=== PATIENT | female | born 1970 | race Caucasian/White ===

== ENCOUNTER 2020-06-20 15:47 | Outpatient (CLI) | payer BC, SELFPAY ==
--- NOTE | ~2020-06-20 | MM_ITS ---
EXAMINATION: MM screening [facility] BI w braydon HISTORY: Screening mammogram TECHNIQUE: Craniocaudal and mediolateral oblique 3-D tomosynthesis images were obtained and synthetic 2-D images were generated. CAD analysis was submitted and interpreted. COMPARISON: 06/10/2019, 06/10/2018, 01/09/2017 BREAST PARENCHYMAL COMPOSITION: The breasts are heterogeneously dense, which may obscure small masses . FINDINGS: RIGHT BREAST: There is a possible mass in the middle third of the lower-outer right breast. LEFT BREAST: There is no evidence of suspicious mass, calcification, or architectural distortion to s uggest malignancy. There has been no significant interval change. IMPRESSION: 1. Possible right breast mass. 2. Additional mammographic views and possible breast ultrasound are recommended. BI-RADS Category 0: Incomplete: Needs additional imaging evaluation. Reviewed, dictated and finalized at location A. HIC DESIGN MANAGER IMPRESSION: 1. Possible right breast mass. 2. Additional mammographic views and possible breast ultrasound are recommended . BI-RADS Category 0: Incomplete: Needs additional imaging evaluation.
== END 2020-06-20 15:48 | disposition home or self-care (01) ==
PROVIDERS: Visit Provider Obstetrics & Gynecology
DX: Z12.31 Encounter for screening mammogram for malignant neoplasm of breast (principal); R92.8 Other abnormal and inconclusive findings on diagnostic imaging of breast
CPT/HCPCS: 77063; 77067

== ENCOUNTER 2020-07-24 10:57 | Outpatient (CLI) | payer BC, SELFPAY ==
--- NOTE | ~2020-07-24 | MMUS_ITS ---
EXAMINATION: MM diagnostic mammo unilat RT, US breast RT limited HISTORY: Possible right breast mass reported on screening mammogram of 12 12/20/2019 TECHNIQUE: Additional 3-D tomosynthesis images of the right breast were performed and synthetic 2-D i mages were generated. Rolled medial and rolled lateral craniocaudal views. CAD analysis was submitted and interpreted. High resolution upper outer quadrant right breast ultrasound was performed. COMPARISON: 06/20/2020 bilateral digital screening mammogram FINDINGS: MAMMOGRAPHIC FINDINGS: No reproducible suspicious mass or architectural distortion is detected. The area questioned on the CC projection on 06/20/2020 in the posterior outer lower right breast is n ot confirmed on rolled medial and rolled lateral craniocaudal views or compression CC Tomosynthesis v iew. There is heterogeneous dense stroma in the upper outer quadrant which might obscure a small mass. ULTRASOUND: Ultrasound imaging of the upper outer quadrant of the right breast reveals no suspicious mass or shad owing or cyst or other significant finding. IMPRESSION: 1. No mammographic evidence of malignancy 2. Routine annual mammographic screening is recommended. BI-RADS Category 1: Negative Reviewed, dictated and finalized at location A. NG II INSTRUCTOR IMPRESSION: 1. No mammographic evidence of malignancy 2. Routine annual mammographic screening is recommended. BI-RADS Category 1: Negative
== END 2020-07-24 10:58 | disposition home or self-care (01) ==
LOC: ANHIMG 11:05
PROVIDERS: Visit Provider Obstetrics & Gynecology
DX: R92.8 Other abnormal and inconclusive findings on diagnostic imaging of breast (principal)
CPT/HCPCS: 76642; 77065

== ENCOUNTER 2021-11-20 07:34 | Outpatient (CLI) | payer BC, SELFPAY ==
--- NOTE | ~2021-11-20 | MM_ITS ---
EXAMINATION: MM screening [facility] BI w bryadon HISTORY: Screening mammogram TECHNIQUE: Craniocaudal and mediolateral oblique 3-D tomosynthesis images were obtained and synthetic 2-D images were generated. CAD analysis was submitted and interpreted. COMPARISON: 07/24/2020, 06/20/2020, 06/10/2019 BREAST PARENCHYMAL COMPOSITION: There are scattered areas of fibroglandular density. FINDINGS: There is no suspicious mass, calcification, or architectural distortion to suggest malignan cy in either breast. There has been no suspicious interval change. IMPRESSION: 1. No mammographic evidence of malignancy. 2. Recommend routine screening mammography in one year. BI-RADS Category 1: Negative Reviewed, dictated and finalized at location A.
== END 2021-11-20 07:35 | disposition home or self-care (01) ==
PROVIDERS: Visit Provider Obstetrics & Gynecology
DX: Z12.31 Encounter for screening mammogram for malignant neoplasm of breast (principal)
CPT/HCPCS: 77063; 77067

== ENCOUNTER 2022-11-07 16:51 | Outpatient (CLI) | payer OTHER, SELFPAY ==
--- NOTE | ~2022-11-07 | MM_ITS ---
EXAMINATION: MM screening [facility] BI w braydon HISTORY: Screening mammogram TECHNIQUE: Craniocaudal and mediolateral oblique 3-D tomosynthesis images were obtained and synthetic 2-D images were generated. CAD analysis was submitted and interpreted. COMPARISON: 11/20/2021, 07/24/2020, 06/20/2020, 06/10/2019 BREAST PARENCHYMAL COMPOSITION: There are scattered areas of fibroglandular density. FINDINGS: No suspicious mass, calcification, or architectural distortion are identified in either jolie ast to suggest malignancy. There has been no suspicious interval change. IMPRESSION: 1. No mammographic evidence of malignancy. 2. Recommend routine screening mammography in one year. BI-RADS Category 1: Negative Reviewed, dictated and finalized at location A.
== END 2022-11-07 16:52 | disposition home or self-care (01) ==
LOC: ANHIMG 17:09
PROVIDERS: Visit Provider Obstetrics & Gynecology
DX: Z12.31 Encounter for screening mammogram for malignant neoplasm of breast (principal)
CPT/HCPCS: 77063; 77067

== ENCOUNTER 2024-01-07 14:49 | Outpatient (CLI) | payer OTHER, SELFPAY ==
--- NOTE | ~2024-01-07 | MM_ITS ---
EXAMINATION: MM screening [facility] BI w braydon HISTORY: Screening mammogram TECHNIQUE: Craniocaudal and mediolateral oblique 3-D tomosynthesis images were obtained and synthetic 2-D images were generated. CAD analysis was submitted and interpreted. COMPARISON: 11/08/2019, 11/20/2021, 07/24/2020 BREAST PARENCHYMAL COMPOSITION:Not Dense. There are scattered areas of fibroglandular density. FINDINGS: There are developing nodular asymmetries at the inner left breast. No suspicious interval c hange of the right breast. IMPRESSION: Developing nodular asymmetries at the inner left breast. Spot compression views, and possibly ultras ound, recommended for further evaluation. BI-RADS Category 0: Incomplete: Needs additional imaging evaluation. Reviewed, dictated and finalized at location . IMPRESSION: Developing nodular asymmetries at the inner left breast. Spot compression view s, and possibly ultrasound, recommended for further evaluation. BI-RADS Category 0: Incomplete: Needs additional imaging evaluation.
== END 2024-01-07 14:50 | disposition home or self-care (01) ==
LOC: ANHIMG 14:51
PROVIDERS: Visit Provider Obstetrics & Gynecology
DX: Z12.31 Encounter for screening mammogram for malignant neoplasm of breast (principal); R92.8 Other abnormal and inconclusive findings on diagnostic imaging of breast
CPT/HCPCS: 77063; 77067

== ENCOUNTER 2024-01-20 10:37 | Outpatient (CLI) | payer OTHER, SELFPAY ==
--- NOTE | ~2024-01-20 | MMUS_ITS ---
EXAMINATION: MM diagnostic [facility] LT w braydon, US breast LT limited HISTORY: Follow-up left breast mass TECHNIQUE: Additional 3-D tomosynthesis images of the left breast were performed and synthetic 2-D im ages were generated. CAD analysis was submitted and interpreted. High resolution Limited left breast ultrasound was performed. COMPARISON: Comparison to multiple prior studies sequentially, with oldest reviewed study dated 11/2018. BREAST PARENCHYMAL COMPOSITION: Not dense: There are scattered areas of fibroglandular density. FINDINGS: MAMMOGRAPHIC FINDINGS: There is a small mass in the medial aspect of the left breast at approximately 9:00 position, middle third. This mass is partially obscured by fibroglandular tissue. There are no suspicious calcificatio ns or architectural distortion. ULTRASOUND: Limited left breast ultrasound: At 9:00, 7 cm from the nipple there is a septated 4 mm cyst correspon ding to the mammographic finding. No suspicious masses to suggest malignancy. IMPRESSION: 1. No evidence for malignancy in the left breast. Benign findings. 2. Routine yearly screening mammogram and regular clinical breast examination are recommended. BI-RADS CATEGORY 2 - BENIGN FINDINGS Reviewed, dictated and finalized at location B. IMPRESSION: 1. No evidence for malignancy in the left breast. Benign findings. 2. Routine yearly screening mammogram and regular clinical breast examination a re recommended. BI-RADS CATEGORY 2 - BENIGN FINDINGS
== END 2024-01-20 10:38 | disposition home or self-care (01) ==
LOC: ANHIMG 10:38
PROVIDERS: Visit Provider Obstetrics & Gynecology
DX: R92.8 Other abnormal and inconclusive findings on diagnostic imaging of breast (principal)
CPT/HCPCS: 76642; 77061; 77065; G0279

== ENCOUNTER 2025-05-10 16:05 | Outpatient (CLI) | payer OTHER, SELFPAY ==
--- NOTE | ~2025-05-10 | MM_ITS ---
EXAMINATION: MM screening kevyn BI w braydon HISTORY: Screening TECHNIQUE: Craniocaudal and mediolateral oblique 3-D tomosynthesis images were obtained and synthetic 2-D images were generated. CAD analysis was submitted and interpreted. COMPARISON: Comparison to multiple prior studies sequentially, with oldest reviewed study dated , 06/20/2020 BREAST PARENCHYMAL COMPOSITION: There are scattered areas of fibroglandular density. FINDINGS: There is no evidence of suspicious mass, calcification, or architectural distortion to suggest malignancy in either breast. IMPRESSION: 1. No mammographic evidence of malignancy. 2. Recommend routine screening mammography in one year. BI-RADS Category 1: Negative Reviewed, dictated and finalized at location B. [facility]
--- OUTSIDE RECORDS SUMMARY | 2025-05-10 07:00 | XMS_ITS | Encounter Summary ---
Author Organization [facility] Healthcare Address [address] [place] [address] Care Team Providers Care Fan Blade Aligner Name Role Phone Starr Jennings Unavailable [phone] oCle Rush MD Unavailable [phone] Maxwell Nuñez MD Unavailable [phone] Cheri Ann NP Unavailable [phone] Justina Camp Primary Care Provider + Reason for Visit * Reason Comments Annual Exam Pt is here for yearl y wellness visit Encounter Details Date Type Department Care Team (Latest Contact Info) Description 05/10/2025 7:00 AM SUSTAINABILITY OFFICER Office Visit [facility] Family Medicine [address] [id number] Bee Sims NP [address] [facility] [address] [place] [address] Physical exam, annual (Primary Dx); Moderate major depression (HCC); Attention deficit hyperactivity disorder (ADHD), predominantly inattentive type; DUNIA (generalized anxiety disorder); Hepatic steatosis; FÉLIX (obstructive sleep apnea); Hypertension, essential; Vitamin D deficiency(12); Class 1 obesity due to excess calories without serious comorbidity with body mass index (BMI) of 33.0 to 33.9 in adult; History of melanoma excision; Need for vaccination Social History Tobacco Use Types Packs/Day Years Used Date Smoking Tobacco: Never Smokeless Tobacco: Never Alcohol Use Standard Drinks/Week Comments Yes 6 (1 standard drink = 0.6 oz pur e alcohol) socially PHQ-2 Answer Date Recorded PHQ-2 Total Score (If total score is 3 or more points, staff should administer the PHQ-9) 2 05/10/2025 PHQ-9 Answer Date Recorded PHQ-9 Total Score 11 05/10/2025 AUDIT-C Answer Date Recorded Q1: How often do you have a drink containing alc ohol? 2-3 times a week 05/10/2025 Q2: How many drinks containi ng alcohol do you have on a typical day when you are drinking? 3 or 4 05/10/2025 Q3: How often do you have si x or more drinks on one occasion? Less than monthly 05/10/2025 Comments No Sex and Gender Information Value Date Recorded Sex Assigned at Not on file Legal Sex Female 2:29 AM SUSTAINABILITY OFFICER Gender Identity Female 06/17/2020 11:07 AM SUSTAINABILITY OFFICER Sexual Orientation Straight 06/17/2020 11 :07 AM SUSTAINABILITY OFFICER documented as of this encounter Last Filed Vital Signs Vital Sign Reading Time Taken Comments Blood Pressure 138/82 05/10/2025 6:56 AM SUSTAINABILITY OFFICER Pulse 94 05/10/2025 6:56 AM SUSTAINABILITY OFFICER Temperature 36.2 C (97.2 F) 05/10/2025 6:56 AM SUSTAINABILITY OFFICER Respiratory Rate 16 05/10/2025 6:56 AM SUSTAINABILITY OFFICER Oxygen Saturation 97% 05/10/2025 6:56 AM SUSTAINABILITY OFFICER Inhaled Oxygen Concentration - - Weight 90.2 kg (198 lb 12.8 oz) 05/10/2025 6:56 AM SUSTAINABILITY OFFICER Height 165.1 cm (5' 5) 05/10/2025 6:56 AM SUSTAINABILITY OFFICER Body Mass Index 33.08 05/10/2025 6:56 AM SUSTAINABILITY OFFICER documented in this encounter Functional Status * AUDIT-C Score Answer Date of Assessment Author 5 05/10/2025 7:02 AM SUSTAINABILITY OFFICER Gabriella Gallego MA * Question Answer Date of Assessment Author Q1: How often do you have a drink containing alcohol? 2-3 times a week 05/10/2025 7:02 AM Renita Motta MA Q2: How many drinks containing alcohol do you have on a typical day when you are drinking? 3 or 4 05/10/2025 7:02 AM Renita Motta MA Q3: How often do you have six or more drinks on one occasion? Less than monthly 05/10/2025 7:02 AM Renita Motta MA documented as of this encounter Progress Notes * Bee Sims MAGNESIUM MILL OPERATOR - 05/10/2025 7:00 AM CST Images from the original note were not included. Subjective/Objective Visit Date: 05/10/2025 Patient ID: Christy Morales is a 55 y.o. female. This patient has verbally consented to recording this visit in order to utilize AI technology in generating this note. Chief Complaint Chief Complaint Patient presents with Annual Exam Pt is here for yearly wellness visit History of Present Illness Christy Morales is a 55 year old female who presents for an annual physical exam. Depression with anxiety - DUNIA of 18 today. She manages her anxiety better than before, although it remains high. It does not significantly affect her sleep or daily life. Sleep disturbances are attributed to menopausal symptoms, such as hot flashes, which cause her to wake up at the same time everynight, but she is able to fall back asleep easily. Depression is stable with PHQ of 11. She experiences seasonal depression, particularly during the holidays, and finds exercise helps. Hx of melanoma-She was treated for melanoma in 2018, which was removed from her arm. She sees a artificial pearl maker annually for follow-up. ADHD-She is taking Adderall for ADHD, which helps with focus and does not cause chest fluttering oraffect her sleep. Vit D deficiency- vitamin D supplement, 50,000 IU weekly, but notes that it causes constipation. Obesity -She has been actively trying to lose weight for the past two years, incorporating walking and a 20-minute routine when unable to walk outside. She has lost 14 pounds over the past year. FÉLIX-She has sleep apnea but does not use a CPAP machine, as it made her feel more agitated. Her [id number] has suggested a dental device, but she has not pursued it. Hepatic steatosis - asx w/ normal liver enzymes- working on diet HTN - bp in 130s in office today - denies CP or SOB- no medication at this time - believes it may be higher today due to her boss being in today She has been diagnosed with celiac disease but does not restrict her diet as she does not experience symptoms. Vitals: 05/10/25 0656 BP: 138/82 BP Location: Right arm Patient Position: Sitting Pulse: 94 Resp: 16 Temp: 36.2 ??C (97.2 ??F) TempSrc: Temporal SpO2: 97% Weight: 90.2 kg (198 lb 12.8 oz) Height: 165.1 cm (5' 5) Physical Exam Constitutional: Appearance: Normal appearance. HENT: Right Ear: Tympanic membrane, ear canal and external ear normal. Left Ear: Tympanic membrane, ear canal and external ear normal. Nose: Nose normal. Mouth/Throat: Mouth: Mucous membranes are moist. Eyes: Conjunctiva/sclera: Conjunctivae normal. Cardiovascular: Rate and Rhythm: Normal rate and regular rhythm. Pulses: Normal pulses. Heart sounds: Normal heart sounds. Pulmonary: Effort: Pulmonary effort is normal. Breath sounds: Normal breath sounds. Abdominal: General: Bowel sounds are normal. Palpations: Abdomen is soft. Musculoskeletal: General: Normal range of motion. Cervical back: Normal range of motion. Skin: General: Skin is warm and dry. Neurological: General: No focal deficit present. Mental Status: She is alert and oriented to person, place, and time. Mental status is at baseline. Psychiatric: Mood and Affect: Mood normal. Results LABS Vitamin D: decreased (10/2024) Liver enzymes: within normal limits (10/2024) Assessment & Plan Physical exam, annual General health maintenance discussed Annual eye exam recommended Regular dental exams recommended every 6 months Labs up to date Influenza and PNA given today Will get shingles vaccine at later date Moderate major depression (HCC) Chronic, stable Exercise encouraged to release natural endorphins Attention deficit hyperactivity disorder (ADHD), predominantly inattentive type Chronic, stable ADHD managed with Adderall. No side effects reported. Medication effective for focus. - Update and sign controlled substance agreement form. DUNIA (generalized anxiety disorder) Chronic, stable Exercise encouraged to release natural endorphins Hepatic steatosis Chronic, stable Fatty liver with normal liver enzymes. Weight loss efforts ongoing. - Continue weight loss efforts to improve liver health. FÉLIX (obstructive sleep apnea) Chronic, stable -Reports sleeping well - Discuss benefits of weight loss on sleep apnea and overall health. Diagnosed with sleep apnea. Not using CPAP. Discussed alternative oral devices. Weight loss may improve symptoms. - Consider alternative oral devices for sleep apnea. - Encourage weight loss to potentially alleviate sleep apnea symptoms. Hypertension, essential Chronic, stable Reviewed heart healthy diet Exercise recommended at least 5 times per week for a 1/2 hour Low-sodium diet recommended-2000 mg or less per day Monitor blood pressure regularly notify if less than 100/60 or greater than 130s over 80s Notify if pulse is less than 60 or greater than 100 Vitamin D deficiency(12) Chronic, stable Taking 50,000 IU weekly. Reports constipation. Discussed adjusting intake based on sun exposure andside effects. - Recheck vitamin D levels in six months. Class 1 obesity due to excess calories without serious comorbidity with body mass index (BMI) of 33.0 to 33.9 in adult Chronic, improving Obesity, class 1 BMI 33. Lost 14 pounds over the past year. Encouraged continued weight loss to reduce diabetes and cholesterol risk. Discussed benefits on sleep apnea and overall health. - Encourage continued weight loss efforts. History of melanoma excision Melanoma excised in 2018. Annual dermatology follow-ups maintained. - Continue annual dermatology follow-ups. Need for vaccination PNA and influenza vaccine given today Orders: Pneumococcal conjugate vaccine 20-valent IM (Prevnar-20) Flu Vaccine Tri 6m+ IM - Flulaval/Fluarix/Fluzone () Assessment & Plan Return for F/U in 6 months. Bee Sims NP AINABILITY OFFICER documented in this encounter Miscellaneous Notes * Assessment & Plan Note - Bee Sims NP - 05/10/2025 7:00 AM SUSTAINABILITY OFFICER Associated Problem(s): Physical exam, annual General health maintenance discussed Annual eye exam recommended Regular dental exams recommended every 6 months Labs up to date Influenza and PNA given today Will get shingles vaccine at later date AINABILITY OFFICER AINABILITY OFFICER AINABILITY OFFICER AINABILITY OFFICER * Assessment & Plan Note - Bee Sims NP - 05/10/2025 7:00 AM SUSTAINABILITY OFFICER Associated Problem(s): Attention deficit hyperactivity disorder (ADHD), predominantly inattentive type Chronic, stable ADHD managed with Adderall. No side effects reported. Medication effective for focus. - Update and sign controlled substance agreement form. AINABILITY OFFICER AINABILITY OFFICER AINABILITY OFFICER AINABILITY OFFICER * Assessment & Plan Note - Bee Sims NP - 05/10/2025 7:00 AM SUSTAINABILITY OFFICER Associated Problem(s): Hepatic steatosis Chronic, stable Fatty liver with normal liver enzymes. Weight loss efforts ongoing. - Continue weight loss efforts to improve liver health. AINABILITY OFFICER AINABILITY OFFICER AINABILITY OFFICER AINABILITY OFFICER * Assessment & Plan Note - Bee Sims NP - 05/10/2025 7:00 AM SUSTAINABILITY OFFICER Associated Problem(s): FÉLIX (obstructive sleep apnea) Chronic, stable -Reports sleeping well - Discuss benefits of weight loss on sleep apnea and overall health. Diagnosed with sleep apnea. Not using CPAP. Discussed alternative oral devices. Weight loss may improve symptoms. - Consider alternative oral devices for sleep apnea. - Encourage weight loss to potentially alleviate sleep apnea symptoms. AINABILITY OFFICER AINABILITY OFFICER AINABILITY OFFICER AINABILITY OFFICER * Assessment & Plan Note - Bee Sims NP - 05/10/2025 7:00 AM SUSTAINABILITY OFFICER Associated Problem(s): Vitamin D deficiency(12) Chronic, stable Taking 50,000 IU weekly. Reports constipation. Discussed adjusting intake based on sun exposure andside effects. - Recheck vitamin D levels in six months. AINABILITY OFFICER AINABILITY OFFICER AINABILITY OFFICER AINABILITY OFFICER * Assessment & Plan Note - Bee Sims NP - 05/10/2025 7:00 AM SUSTAINABILITY OFFICER Associated Problem(s): Class 1 obesity due to excess calories without serious comorbidity with bodymass index (BMI) of 33.0 to 33.9 in adult Chronic, improving Obesity, class 1 BMI 33. Lost 14 pounds over the past year. Encouraged continued weight loss to reduce diabetes and cholesterol risk. Discussed benefits on sleep apnea and overall health. - Encourage continued weight loss efforts. AINABILITY OFFICER AINABILITY OFFICER AINABILITY OFFICER AINABILITY OFFICER * Assessment & Plan Note - Bee Sims NP - 05/10/2025 7:00 AM SUSTAINABILITY OFFICER Associated Problem(s): Moderate major depression (HCC) Chronic, stable Exercise encouraged to release natural endorphins AINABILITY OFFICER AINABILITY OFFICER * Assessment & Plan Note - Bee Sims NP - 05/10/2025 7:00 AM SUSTAINABILITY OFFICER Associated Problem(s): History of melanoma excision Melanoma excised in 2018. Annual dermatology follow-ups maintained. - Continue annual dermatology follow-ups. AINABILITY OFFICER AINABILITY OFFICER AINABILITY OFFICER * Assessment & Plan Note - Bee Sims NP - 05/10/2025 7:00 AM SUSTAINABILITY OFFICER Associated Problem(s): Hypertension, essential Chronic, stable Reviewed heart healthy diet Exercise recommended at least 5 times per week for a 1/2 hour Low-sodium diet recommended-2000 mg or less per day Monitor blood pressure regularly notify if less than 100/60 or greater than 130s over 80s Notify if pulse is less than 60 or greater than 100 AINABILITY OFFICER AINABILITY OFFICER * Assessment & Plan Note - Bee Sims NP - 05/10/2025 7:00 AM SUSTAINABILITY OFFICER Associated Problem(s): DUNIA (generalized anxiety disorder) Chronic, stable Exercise encouraged to release natural endorphins AINABILITY OFFICER AINABILITY OFFICER documented in this encounter Plan of Treatment Not on file documented as of this encounter Visit Diagnoses Diagnosis Physical exam, annual- Primary Moderate major depression (HCC) Major depressive disorder, single episode, moderate Attention deficit hyperactivity disorder (ADHD), predominantly inattentive type DUNIA (generalized anxiety disorder) Generalized anxiety disorder Hepatic steatosis Other chronic nonalcoholic liver disease FÉLIX (obstructive sleep apnea) Obstructive sleep apnea (adult) (pediatric) Hypertension, essential Unspecified essential hypertension Vitamin D deficiency(12) Class 1 obesity due to excess calories without serious comorbidity with body mass index (BMI) of 33.0 to 33.9 in adult History of melanoma excision Need for vaccination Need for prophylactic vaccination and inoculation against unspecified single disease documented in this encounter Orders Immunization/Injection Count Last Ordered Date First Ordered Date FLU VACCINE TRI (6 M OS UP) PF - FLULAVAL/FLUARIX/FLUZONE 1 05/10/2025 PNEUMOCOCCAL CONJUGATE VACCI NE 20 VALENT IM 1 05/10/2025 documented in this encounter Care Teams Fan Blade Aligner Relationship Specialty Start Date End Date Justina Camp PA [address] [facility] [address] [place] [address] PCP - General Family Medicine 02/11/24 Starr Jennings PA [address] [facility] [address] 06/27/20 Cole Rush MD [address] [address] Referring Physician Obstetrics and Gynecology 01/15/22 Maxwell Nuñez MD [address] [address] Consulting Physician Endocrinology Diabetes & Metabolism 01/15/22 Cheri Ann NP [address] [facility] [place] [address] Nurse Practitioner Gastroenterology 01/15/22 documented as of this encounter
--- OUTSIDE RECORDS SUMMARY | 2025-05-10 16:51 | XMS_ITS | Clinical Summary ---
Author Organization [facility] Address [address] [place] [address] Care Team Providers Care Senior Sql Server Developer Name Role Phone Unavailable Primary Care Provider Unavailabl e Source Comments [facility],non-owned Affiliates and Associated Physician Practices is amultiple site organization consisting of ambulatory clinics and hospital sitesin [place], [place], [place] and [place]. This disclosure is being madepursuant to the Care Everywhere program and may not contain all information available regarding this patient. Last updated 18.[facility] Allergies No known active allergies Medications * Be aware that medications may not be up to date on this document. Alwaysverify current medications with the patient. ergocalciferol (DRISDOL) 1.25 MG (56570 UT) capsule Take 50,000 Units by mouth Two times a week 12/11/2020 Active Active Problems Problem Noted Date Diagnosed Date Melanoma of right upper arm 05/11/2018 Immunizations Immunization Administration Dates Next Due INFLUENZA VACCINE 06/27/2020 Family History Medical History Relation Name Comments Other - Hepatic/Liver Father Relation Name Status Comments Father Social History Tobacco Use Types Packs/Day Years Used Date Smoking Tobacco: Never Smokeless Tobacco: Never Alcohol Use Standard Drinks/Week Comments Yes 0 (1 standard drink = 0.6 oz pur e alcohol) socially Comments No Sex and Gender Information Value Date Recorded Sex Assigned at Not on file Legal Sex Female 2:02 PM CDT Gender Identity Not on file Sexual Orientation Not on file Last Filed Vital Signs Vital Sign Reading Time Taken Comments Blood Pressure 152/90 07/04/2021 8:41 AM CANE WEIGHER Pulse 91 07/04/2021 8:41 AM CANE WEIGHER Temperature 36.3 C (97.3 F) 07/04/2021 8:41 AM CANE WEIGHER Respiratory Rate 20 06/28/2020 9:29 AM CANE WEIGHER Oxygen Saturation 99% 07/04/2021 8:41 AM CANE WEIGHER Inhaled Oxygen Concentration - - Weight 106.6 kg (235 lb) 07/04/2021 8:41 AM CANE WEIGHER Height 167.6 cm (5' 6) 07/04/2021 8:41 AM CANE WEIGHER Body Mass Index 37.93 07/04/2021 8:41 AM CANE WEIGHER Plan of Treatment Health Maintenance Due Date Last Done Comments COLOGUARD (AGES 45-75) - COL ON CA SCREENING 1969 COLON MONITORING 1969 COLONOSCOPY - COLON CA SCREENING 1969 CT COLONOGRAPHY - COLON CA SCREENING 1969 Colorectal Cancer Screening 1969 FIT - COLON CA SCREENING 1969 FLEX SIG - COLON CA SCREENING 1969 LIPID TESTING 1969 HIV SCREENING 01/11/1984 HEPATITIS C SCREENING 01/06/1987 DTAP/TDAP/TD VACCINES (1 - Tdap) 01/11/1988 HEPATITIS B VACCINE (1 of 3 - 19+ 3-dose series) 01/11/1988 PAP SMEAR 1990 PNEUMOCOCCAL VACCINE 50+ (1 of 1 - PCV) 2019 ZOSTER VACCINE (1 of 2) 2019 MAMMOGRAM 06/10/2020 06/10/2018 SCREENING FOR DIABETES 05/11/2021 05/11/2018 DEPRESSION SCREENING 07/07/2024 COVID-19 VACCINE (3 - 2024-2 6 season) 2025 09/14/2020, 08/24/2020 INFLUENZA VACCINE (#1) 2025 2, 04/17/2021, 06/27/2020 HIB VACCINE Aged Out No longer eligi ble based on patient's age to complete this topic HPV VACCINE Aged Out No longer eligi ble based on patient's age to complete this topic MENINGOCOCCAL (Group B) VACCINE SHARED DECISION-MAKING Aged Out No longer eligible based on patient's age to complete this topic MENINGOCOCCAL GROUPS A/C/Y/W VACCINE Aged Out No longer eligible b ased on patient's age to complete this topic Procedures Procedure Name Priority Date/Time Associated Diagnosis Comments COMPREHENSIVE METABOLIC PANEL Routine 05/11/2018 4:40 PM CANE WEIGHER Malignant melanoma of arm, right from Last 3 Months or Most Recently Relevant to Health Maintenance Results * (ABNORMAL) COMPREHENSIVE METABOLIC PANEL (05/11/2018 4:40 PM CANE WEIGHER) BUN 7 7 - 26 mg/dL 05/11/2018 5:15 PM [facility] Creatinine 0.6 0.6 - 1.2 mg/dL 05/11/2018 5:15 PM [facility] Sodium 140 136 - 145 mmol/L 05/11/2018 5:15 PM [facility] Potassium 4.2 3.5 - 4.5 mmol/L 05/11/2018 5:15 PM [facility] Chloride 106 98 - 107 mmol/L 05/11/2018 5:15 PM [facility] CO2 25 22 - 29 mmol/L 05/11/2018 5:15 PM [facility] Glucose 94 70 - 115 mg/dL 05/11/2018 5:15 PM [facility] Calcium 9.4 8.4 - 10.2 mg/dL 05/11/2018 5:15 PM [facility] Protein Total 7.6 6.0 - 8.3 g/dL 05/11/2018 5:15 PM [facility] Albumin 3.6 3.4 - 5.0 g/dL 05/11/2018 5:15 PM [facility] Bilirubin Total 0.7 0.2 - 1.2 mg/dL 05/11/2018 5:15 PM [facility] Alkaline Phosphatase 72 40 - 150 Units/L 05/11/2018 5:15 PM [facility] ALT 47 0 - 55 Units/L 05/11/2018 5:15 PM [facility] AST 22 5 - 34 Units/L 05/11/2018 5:15 PM [facility] Anion Gap 13 8 - 18 05/11/2018 5:15 PM [facility] BUN/Creatinine Ratio 12 7 - 23 05/11/2018 5:15 PM [facility] Osmolality Calculated 288 270 - 300 mOsm/kg 05/11/2018 5:15 PM [facility] Albumin/Globulin Ratio 0.9(L) 1.1 - 2.3 05/11/2018 5:15 PM [facility] eGFR >60 >60 mL/min/1.7 3 m2 05/11/2018 5:15 PM [facility] Blood BLOOD SPECIMEN / Unknown Lab Venipuncture / Unknown 05/11/2018 4:40 PM CANE WEIGHER 05/11/2018 4:49 PM [facility] Vu Bertrand MD LAB - CHEMISTRY ORDERABLES Final Result [address] [phone] from Last 3 Months or Most Recently Relevant to Health Maintenance Insurance [facility]
--- OUTSIDE RECORDS SUMMARY | 2025-05-10 16:51 | XMS_ITS | Encounter Summary ---
Author Organization [facility] Address [address] [place] [address] Care Team Providers Care Inspector Watch Assembly Name Role Phone Unavailable Primary Care Provider Unavailabl e Encounter Details Date Type Department Care Team (Late st Contact Info) Description 12/25/2020 Lab Requisition [facility] [address] [place] [address] Eduar Chambers MD [address] [facility] [place] [address] Social History Tobacco Use Types Packs/Day Years Used Date Smoking Tobacco: Never Smokeless Tobacco: Never Alcohol Use Standard Drinks/Week Comments Yes 0 (1 standard drink = 0.6 oz pur e alcohol) socially Comments No Sex and Gender Information Value Date Recorded Sex Assigned at Not on file Legal Sex Female 2:02 PM CDT Gender Identity Not on file Sexual Orientation Not on file documented as of this encounter Functional Status * Is person deaf or have serious hearing difficulty? Answer Date of Assessment Author No 05/15/2018 3:11 PM Wendy Centeno RN * Is person blind or have serious difficulty seeing? Answer Date of Assessment Author No 05/15/2018 3:11 PM Wendy Centeno RN * Does person have serious difficulty walking/climbing stairs? Answer Date of Assessment Author No 05/15/2018 3:11 PM Wendy Centeno RN * Does person have difficulty dressing/bathing? Answer Date of Assessment Author No 05/15/2018 3:11 PM Wendy Centeno RN * Does person have difficulty doing errands alone? Answer Date of Assessment Author No 05/15/2018 3:11 PM Wendy Centeno RN documented as of this encounter Mental Status * Does person have difficulty concentrating/remembering/making decisions? Answer Entry Date Author No 05/15/2018 3:11 PM Wendy Centeno RN documented in this encounter Plan of Treatment Not on file documented as of this encounter Procedures Procedure Name Priority Date/Time Associated Diagnosis Comments DERMATOPATHOLOGY Routine 12/21/2020 3:33 AM CDT documented in this encounter Results * DERMATOPATHOLOGY (12/21/2020 3:33 AM CDT) Case Report Dermatopathology Report Case: [id number] Authorizing Provider: Eduar Chambers MD Collected: 12/21/2020 03:33 AM Ordering Location: [facility] Received: 12/25/2020 05:23 AM Pathologist: Tracey Evans MD Specimen: Skin, right inframammary 10:16 AM CDT DERMATOPATHOLOGY LABORATORY Final Diagnosis Specimen A. SKIN, right inframammary: LENTIGINOUS MELANOCYTIC NEVUS, COMPOUND TYPE, IRRITATED (COMPOUND MELANOCYTIC NEVUS WITH ARCHITECTURAL DISORDER) (D22.5) 10:16 AM CDT DERMATOPATHOLOGY LABORATORY at 1016 CDT Clinical History Nevus vs MM. Path# [id number]. 10:16 AM CDT DERMATOPATHOLOGY LABORATORY Gross Description Specimen A: Received is one formalin filled container labeled with the patient's name and designated right inframammary. The specimen consists of a shave biopsy measuring [id number]. Jar 0. 10:16 AM CDT DERMATOPATHOLOGY LABORATORY Microscopic Description Specimen A. SKIN, right inframammary: This is a compound nevus. There is melanin pigment in the stratum corneum. There is architectural disorder characterized by a lentiginous proliferation of melanocytes between irregular nests of cells along the dermal-epidermal junction, highlighted by MART-1/Melan-A immunohistochemical staining. There is underlying fibroplasia of the papillary dermis. The intradermal component is bland appearance and matures with depth. Original and deeper sections were reviewed. (Compound Chong's Nevus or Compound Dysplastic Nevus) 1 10:16 AM CDT DERMATOPATHOLOGY LABORATORY Disclaimer An external and internal positive and negative controls are appropriate for the histochemical, immunohistochemical and immunofluorescence stain(s) in this case (if any), except where stated explicitly. The performance characteristics of the stain(s) cited in this report were developed and its performance characteristic determined by the Dermatopathology Laboratory at [facility], directed by Dr. Gallo Sweeney. These tests need not be, and therefore are not, approved by the [place] Food and Drug Administration. The tests are used for clinical purposes. Billing Codes Specimen Charges Stain Charges 57434 1 22585 1 1 10:16 AM CDT DERMATOPATHOLOGY LABORATORY Embedded Images 1 10:16 AM CDT DERMATOPATHOLOGY LABORATORY Pathology/Cytolo gy TISSUE SPECIMEN FROM SKIN / Unknown 12/21/2020 3:33 AM CDT 12/25/2020 5:23 AM CDT us Eduar Chambers MD LAB - PATHOLOGY/CYTOLOGY ORDER MARIA ANTONIA Final Result DERMATOPATHOLOGY LABORATORY [facility] - Department of Dermatology [address], [address] [phone] documented in this encounter Visit Diagnoses Not on filedocumented in this encounter
--- OUTSIDE RECORDS SUMMARY | 2025-05-10 16:51 | XMS_ITS ---
Author Organization [facility] Address [address] [place] [address] Care Team Providers Care Juvenile Justice Specialist Name Role Phone Unavailable Primary Care Provider Unavailabl e Active Problems Problem Noted Date Diagnosed Date Melanoma of right upper arm 05/11/2018 Current Treatment and Therapy Plans No current plan information found. Past Treatment and Therapy Plans No past plan information found. Treatment Summaries Melanoma of right upper arm (HCC)* [facility] [address] [place] [address] Treatment Summary for Christy Morales 1970 provided on 12/14/2018 Prepared by: Fernanda Dominguez APRN-ADMISSIONS CONSULTANT on 12/14/2018 Primary Care Provider: Jean-Claude Wolfe DO Diagnosis: Melanoma of right upper arm Date of diagnosis: [facility]; 04/21/18 Age of diagnosis: 48 year old Tumor Information Site: Right upper arm Type: Melanoma TNM Staging: [id number] Group Stage: IB Surgery Information Description: Intraoperative lymphatic mapping with Lymphazurin blue dye, sentinel lymph node dissection of right axilla, wide excision of right arm melanoma 5 cm x 13 cm and complex plastic advancement layered closure of wide excision defect Date: 05/15/18 Surgeon/Facility Name: [facility] / Vu Bertrand MD Adjuvant Treatment Recommendations: surveillance Initial Imaging [facility] Xr Chest 2vw Result Date: 05/12/2018 IMPRESSION: Indeterminate 9 mm right upper lung pulmonary nodule may represent a discrete nodule orprominent vasculature. A chest CT without contrast is recommended for further evaluation in the setting of known melanoma Radiation Information NA Chemotherapy Information NA Other Information Clinical Trials: NA Pre-treatment Weight: 104.781 kg Post-Treatment Weight: 104.327 kg Psychosocial needs: None identified Fertility: NA Possible Late Effects of Your Cancer Treatment ??? Pain and scarring at surgical site Cancer Surveillance Schedule You will be seen more frequently the earlier you are in your surveillance plan. Every patient will have an individualized follow up schedule based on recommendations from national cancer organizations and your specific post- treatment course. 3-6 months for first 2 yrs, then every 6 months to annually for 5 years per recommendation of Dr Bertrand Surgery [facility] Imaging [facility] Per recommendation of Dr Bertrand Reasons to call: ??? New lesions or mass ??? Chest pain ??? New feelings of sadness or being overwhelmed ??? Unintended weight loss ??? Cough that does not go away ??? Any side effects or questions of care Your follow up schedule is listed below Future Appointments Date Time Provider Department Center 12/14/2018 1:00 PM Fernanda Dominguez, COMB MACHINE OPERATOR-ADMISSIONS CONSULTANT [facility] 12/14/2018 1:15 PM [facility] Contact Information Surgeon Vu Bertrand MD Social Work Dietitian Pastoral Care [facility] Scheduling Primary Care Provider Jean-Claude Wolfe DO, Recommended cancer screenings Colonoscopy: every 10 years beginning at age 50 unless directed otherwise. Last colonoscopy: Discuss with your primary care provider Mammogram: Annually beginning at age 40 unless directed otherwise. Last mammogram: Discuss with your primary care provider PAP smear: Ages 21-29--every 3 years Ages 30-65--every five years Age 66 (+)--if there is no history of abnormal PAP smears, none needed after age 65 General Wellness Screening Blood Pressure: annually Weight: annually Lipids: Men age >= 35+ should be screened for lipid(cholesterol) disorder. Women age >= 45 should be screened for lipid(cholesterol) disorder Diabetes: Discuss with your primary care provider especially if you are overweight or have high blood pressure Bone Density: Women age >= 65 should be screened for osteoporosis Vision: No routine screening recommended. If you think your vision has changed, get a vision examination. Hearing: No routine screening recommended. If you think your hearing has changed, get a hearing examination. Dental: Dental examinations every 6 months are recommended. If you have had radiation, you should discuss fluoride treatments with your dentist. Please discuss any teeth removal with your radiation oncologist if you have had oral cavity/jaw irradiation. Staying Healthy Immunizations: ??? Annual flu shot ??? Tetanus booster every 10 years ??? Diptheria booster if you haven???t had one ??? Shingles vaccine at age 60 if you have had chicken pox ??? Pneumonia vaccine at ages between 19-64 if chronically ill; at age 65 for all people ....you may be due for a Tdap vaccine; check with your primary care provider. ??? Your History There is no immunization history on file for this patient. Sun Exposure: Wear sunscreen daily. Apply liberally when outside and wear protective clothing. Eltasunscreen is a very good brand but SPF of 50 at least Nutrition: A healthy weight and a balanced diet will Tobacco: Avoid all tobacco and vapor products. If you have not been able to quit, ask for help. Alcohol: Moderate alcohol intake is acceptable. If you think you drink too much, we can help you find resources to help you quit. Drugs: Illegal drugs should be avoided. If you use any of these substances, ask for help with stopping. Activity: Staying active helps your heart, your lungs, and your immune system. Take every opportunity to walk a few extra steps. Important Resources [email or web address] [place] [employer] cancer.org Association of Cancer Online Resources acor.org Caring Bridge caringbridge.org CancerCare cancercare.org LiveStrong Foundation livestrong.org National Cancer [place] cancer.gov Cancer Survivors Network csn.cancer.org National Coalition for Cancer Survivorship canceradvocacy.org [place] Society of Clinical Oncologists cancer.net Cancer Support Community of [facility] [place] www.cancersupportstl.org Radiation Therapy Questions/Answers www.rtanswers.org Primary Care; Chhaya Garay NP
--- OUTSIDE RECORDS SUMMARY | 2025-05-10 16:51 | XMS_ITS | Clinical Summary ---
Author Organization [facility] Address [address] [place] [id number] Care Team Providers Care Gasateria Attendant Name Role Phone Jean-Claude Wolfe DO Primary Care Provider Social History Tobacco Use Types Packs/Day Years Used Date Smoking Tobacco: Never Assessed Comments Unknown Sex and Gender Information Value Date Recorded Sex Assigned at Not on file Legal Sex Female 8:22 PM CDT Gender Identity Not on file Sexual Orientation Not on file Last Filed Vital Signs Vital Sign Reading Time Taken Comments Blood Pressure 129/81 05/19/2017 1:02 PM CRYPTOLOGIC SUPPORT SPECIALIST Pulse 89 05/19/2017 1:02 PM CRYPTOLOGIC SUPPORT SPECIALIST Temperature - - Respiratory Rate - - Oxygen Saturation - - Inhaled Oxygen Concentration - - Weight 103.9 kg (229 lb) 05/19/2017 1:02 PM CRYPTOLOGIC SUPPORT SPECIALIST Height 165.1 cm (5' 5) 05/17/2016 11:01 AM CRYPTOLOGIC SUPPORT SPECIALIST Body Mass Index 38.11 05/17/2016 11:01 AM CRYPTOLOGIC SUPPORT SPECIALIST Plan of Treatment Health Maintenance Due Date Last Done Comments Cervical Cancer Screening Pa p Smear (Age 30 to 64) Every 3 Years 1969 Colorectal Cancer Screening Colonoscopy (10 Years) 1969 Annual Physical 01/11/1972 Hepatitis C 1987 DTaP, Tdap and Td Vaccines ( 1 - Tdap) 01/11/1988 Hepatitis B Vaccines (1 of 3 - 19+ 3-dose series) 01/11/1988 Cervical Cancer Screening Pa p with HPV Testing (Age 30 to 64) Every 5 Years 1999 Cervical Cancer Screening with HPV 1999 Pneumococcal Vaccine: 50+ Ye ars (1 of 1 - PCV) 2019 Zoster Vaccines (1 of 2) 2019 Mammogram Screening 06/10/2020 06/10/2018 COVID-19 Vaccine (2024-2 6 season) 2025 Influenza Adult (#1) 2025 Hepatitis A Vaccines Aged Out No long er eligible based on patient's age to complete this topic Meningococcal B Vaccine Aged Out No l onger eligible based on patient's age to complete this topic Meningococcal Vaccine Aged Out No wayne jose antonio eligible based on patient's age to complete this topic RSV Immunizations Under 20 Months Aged Out No longer eligible based on patient's age to complete this topic Procedures Procedure Name Priority Date/Time Associated Diagnosis Comments MAMMOGRAM GENERIC (SCAN ORDER) Routine 06/10/2018 from Last 3 Months or Most Recently Relevant to Health Maintenance Results * MAMMOGRAM (06/10/2018) Anatomical Region Laterality Modality Other us Documents Scanned SCANNING Final Result from Last 3 Months or Most Recently Relevant to Health Maintenance Insurance Care Teams Gasateria Attendant Relationship Specialty Start Date End Date Jean-Claude Wolfe DO PCP - General FAMILY PRACTICE 05/18/18
--- OUTSIDE RECORDS SUMMARY | 2025-05-10 16:52 | XMS_ITS | Clinical Summary ---
Author Organization [facility] [address] [facility] [place] [address] Care Team Providers Care Cloth Handler Name Role Phone Starr Jennings Unavailable [phone] Cole Rush MD Unavailable [phone] Maxwell Nuñez MD Unavailable [phone] Cheri Ann NP Unavailable [phone] Justina Camp Primary Care Provider + Allergies No known active allergies Medications ergocalciferol (VITAMIN D) 50,000 unit capsuleIndication s:Vitamin D Deficiency Take 1 capsule (50,000 Units total) by mouth once a week 12 capsule 1 4 Active dextroamphetamine -amphetamine XR (ADDERALL XR) 25 mg 24 hr capsuleIndication s:Attention deficit hyperactivity disorder (ADHD), predominantly inattentive type Take 1 capsule (25 mg total) by mouth daily 30 capsule 5 Active dextroamphetamine -amphetamine XR (ADDERALL XR) 25 mg 24 hr capsuleIndication s:Attention deficit hyperactivity disorder (ADHD), predominantly inattentive type Take 1 capsule (25 mg total) by mouth daily 30 capsule 5 05/02/20 25 Discontinu ed(Reorder ) Active Problems Problem Noted Date Diagnosed Date Class 1 obesity due to exces s calories without serious comorbidity with body mass index (BMI) of 33.0 to 33.9 in adult 05/10/2025 Assessment & Plan (05/10/2025 3:04 PM [employer]): Chronic, improving Obesity, class 1 BMI 33. Lost 14 pounds over the past year. Encouraged continued weight loss to reduce diabetes and cholesterol risk. Discussed benefits on sleep apnea and overall health. - Encourage continued weight loss efforts. Moderate major depression 05/10/2025 Assessment & Plan (05/10/2025 3:04 PM [employer]): Chronic, stable Exercise encouraged to release natural endorphins History of melanoma excision 05/10/2025 Assessment & Plan (05/10/2025 3:04 PM [employer]): Melanoma excised in 2018. Annual dermatology follow-ups maintained. - Continue annual dermatology follow-ups. DUNIA (generalized anxiety disorder) 05/10/2025 Assessment & Plan (05/10/2025 3:04 PM [employer]): Chronic, stable Exercise encouraged to release natural endorphins Physical exam, annual 02/11/2024 Assessment & Plan (05/10/2025 3:04 PM [employer]): General health maintenance discussed Annual eye exam recommended Regular dental exams recommended every 6 months Labs up to date Influenza and PNA given today Will get shingles vaccine at later date Assessment & Plan (02/11/2024 3:24 PM CDT): Recent labs reviewed Continue healthy habits Losing weight with diet/exercise Eye/Dental exams - UTD Vaccinations reviewed - discussed shingrix, pt will get at later date Insurance form completed verifying physical completed today for credit. Attention deficit hyperactiv ity disorder (ADHD), predominantly inattentive type 07/02/2023 Assessment & Plan (05/10/2025 3:04 PM [employer]): Chronic, stable ADHD managed with Adderall. No side effects reported. Medication effective for focus. - Update and sign controlled substance agreement form. Assessment & Plan (10/06/2024 3:02 PM CDT): Chronic, stable - Continue Adderall XR 25mg daily Controlled Substance Agreement on file (02/2024) [place]. No suspicious activity. Patient understands risks of use of medication. UDS collected in office Orders: CBC with auto differential; Future Comprehensive metabolic panel; Future Lipid panel; Future Thyroid Function [place]; Future Vitamin D 25 hydroxy; Future POCT URINE DRUG SCREEN Assessment & Plan (02/11/2024 3:17 PM CDT): Stable, no changes. Continue current regimen with adderall Controlled Substance Agreement reviewed with patient in office. Signed by patient. [place] reviewed. No suspicious activity. Patient understands risks of use of medication. Decreased sex drive 03/18/2023 Psychosocial stressors 03/18/2023 Assessment & Plan (03/18/2023 9:11 PM CDT): Recommended different types of counseling and relaxation techniques and to take breaks during work hours Hot flashes 01/15/2022 Recurrent major depressive disorder, in full rem ission 10/30/2020 Assessment & Plan (02/11/2024 3:21 PM CDT): Doing well, no meds FÉLIX (obstructive sleep apnea) 10/02/2020 Assessment & Plan (05/10/2025 3:04 PM [employer]): Chronic, stable -Reports sleeping well - Discuss benefits of weight loss on sleep apnea and overall health. Diagnosed with sleep apnea. Not using CPAP. Discussed alternative oral devices. Weight loss may improve symptoms. - Consider alternative oral devices for sleep apnea. - Encourage weight loss to potentially alleviate sleep apnea symptoms. Assessment & Plan (02/11/2024 2:42 PM CDT): She does not currently wear a CPAP Had home sleep study done Assessment & Plan (06/09/2023 7:14 PM [employer]): Per patient mild. Currently not using any machine. Does follow up with sleep Medicine Dr. Silva who is managing Assessment & Plan (02/01/2021 3:29 PM CDT): The patient has FÉLIX and is going to contact her insurance to see if the oral appliance will be covered. Her current preference is to obtain an oral appliance to treat the FÉLIX. She will also contact her dentist, Dr. Wesly Wilson to see if he would manufacture a device for her. She will call back when she is ready to proceed. I did tell her that I would recommend another test with the oral appliance in place to be certain that is treating the FÉLIX adequately. She will follow-up here on a p.r.n. basis. Assessment & Plan (12/11/2020 6:52 PM CDT): Follow up with cpap titration/study in January. Reassess other conditions after treatment Assessment & Plan (10/02/2020 2:59 PM CDT): The patient would like to examine other options to CPAP therapy. The patient and I discussed an oral appliance for his obstructive sleep apnea in depth. The patient and I also discussed inspire as an option to treat obstructive sleep apnea. The patient was educated that CPAP therapy is the gold standard treatment for obstructive sleep apnea. The patient will consider all options and continue to use positional therapy in the meantime. Secondary hyperparathyroidism 08/28/2020 Assessment & Plan (02/11/2024 3:18 PM CDT): PTH and Vitamin D levels normalized Continue Vitamin D supplement Assessment & Plan (08/28/2020 6:38 PM [employer]): Recheck after vit D replacment Vitamin D deficiency(12) 07/24/2020 Overview (07/24/2020): check celiac. may be from sleep apnea (suspected). has pulm nodule. (slightly abn breath sounds).may need PFT? asvised home lung test on treadmill to see if STERLING Assessment & Plan (05/10/2025 3:04 PM [employer]): Chronic, stable Taking 50,000 IU weekly. Reports constipation. Discussed adjusting intake based on sun exposure and side effects. - Recheck vitamin D levels in six months. Assessment & Plan (10/06/2024 3:02 PM CDT): Chronic, stable Labs ordered - Continue vitamin D supplement as indicated based on labs Orders: CBC with auto differential; Future Comprehensive metabolic panel; Future Lipid panel; Future Thyroid Function [place]; Future Vitamin D 25 hydroxy; Future Assessment & Plan (02/11/2024 3:17 PM CDT): Stable, no changes. Continue current regimen with vitamin D weekly Assessment & Plan (06/09/2023 7:18 PM [employer]): After finishing current dose switch to daily see below Assessment & Plan (12/11/2020 6:51 PM CDT): Improving. Vit D still low at 28 but significantly better than 13. Increase from weekly to twice weekly vit D. Recheck in 6 weeks before sleep study (new baseline to compare) Assessment & Plan (08/28/2020 6:37 PM [employer]): +celiac. Also from FÉLIX. Replace and recheck in 3mo. Check PTH to make sure coming down Arthritis of finger of both hands 07/24/2020 Hypertension, essential 06/27/2020 Assessment & Plan (05/10/2025 3:04 PM [employer]): Chronic, stable Reviewed heart healthy diet Exercise recommended at least 5 times per week for a 1/2 hour Low-sodium diet recommended-2000 mg or less per day Monitor blood pressure regularly notify if less than 100/60 or greater than 130s over 80s Notify if pulse is less than 60 or greater than 100 Assessment & Plan (10/06/2024 3:02 PM CDT): Chronic, stable condition. Continue current medication regimen: lifestyle/healthy changes Orders: CBC with auto differential; Future Comprehensive metabolic panel; Future Lipid panel; Future Thyroid Function [place]; Future Vitamin D 25 hydroxy; Future Assessment & Plan (02/11/2024 3:17 PM CDT): Stable, no changes. Continue current regimen with lifestyle changes Weight loss, low salt Assessment & Plan (06/09/2023 7:14 PM [employer]): Diet-controlled continue Assessment & Plan (03/18/2023 9:10 PM CDT): Diet-controlled no medication Assessment & Plan (10/30/2020 4:46 PM CDT): Improved. Monitor. Focus on wt loss Assessment & Plan (08/28/2020 6:36 PM [employer]): Improved blood pressure. Diastolic still high. Reassess after cpap Assessment & Plan (07/24/2020 5:56 PM [employer]): bp improved. Diastolic still proportionally high. Check sleep study. If negative, look into PFT's (slightly abnormal breath sounds) Incidental lung nodule, > 3mm and < 8mm 06/26/20 20 Hepatic steatosis 06/26/2020 Assessment & Plan (05/10/2025 3:04 PM [employer]): Chronic, stable Fatty liver with normal liver enzymes. Weight loss efforts ongoing. - Continue weight loss efforts to improve liver health. Assessment & Plan (06/26/2023 2:07 PM [employer]): Patient with hepatic steatosis noted on imaging and slightly elevated liver enzymes with ALT 63. She also has HTN and obesity. I anticipate elevated liver enzymes are secondary to the hepatic steatosis. However, I will obtain labs to r/o other causes of liver disease including hepatitis and autoimmune since her dad from autoimmune liver disease at age 54. Given liver enzymes are only mildly elevated, I do not suspect this is autoimmune and is more related to [facility]. Patient would like to have labs drawn locally after 07/07/23 as she will have a lower deducible. I will obtain FibroScan today to evaluate degree of steatosis and if she has any hepatic fibrosis. I explained to patient that she may need MR with elastograhy and/or liver biopsy depending on results. If she has fibrosis, she may be a candidate for Dr. Dunn's study and/or GLP agonist. In the meantime, she is to work on weight loss which we discussed in great detail. She should also avoid all alcohol at this time. We discussed the cause of increased hepatic fat, i.e., inadequate metabolism of fat delivered to the liver. When associated with elevated transaminases, this is metabolic dysfunction-associated steatohepatitis (MASH). This inflammation can lead to scar tissue or cirrhosis of the liver in approximately 30% of cases. Patients with cirrhosis are at risk for developing complications of portal hypertension, liver failure, , liver cancer, and/or the need for a liver transplant. Fat in the absence of elevated transaminases is non-alcoholic fatty liver disease. Routinely, this is not associated with inflammation or progressive hepatic fibrosis. The most effective treatment of fatty liver is weight loss, ideally achieved through a combination of caloric restriction and exercise. Aerobic exercise for 4 hours a week can accelerate fat metabolism and lead to improvement of liver tests. Weight loss of 5-10% of the current body weight usually leads to improvement in liver tests, liver inflammation, and a decrease in hepatic fibrosis. She will return to clinic in 1 year. Hepatomegaly 06/26/2020 Resolved Problems Problem Noted Date Diagnosed Date Resolved Date Upper respiratory tract infection 04/29/2023 02/11/2024 Assessment & Plan (04/29/2023 12:45 PM CDT): Vital signs stable, no respiratory distress, nontoxic appearance, lungs CTAB on exam, 95% on RA Tessalon prn Augmentin as directed, discussed she may wait to take antibiotic until throat culture results or if symptoms do not improve/worsen on day 7-10 of symptoms Supportive care, rest, clear sugar-free fluids (water), steam inhalation/humidifier OTC medications (Flonase, Zyrtec/Claritin, Tylenol/Ibuprofen, Delsym, Mucinex per package instructions) High serum parathyroid hormone (PTH) 03/18/2023 02/11/2024 Assessment & Plan (03/18/2023 9:11 PM CDT): Recheck levels post vitamin-D replacement of twice weekly instead of current once a week Increased PTH level 01/15/2022 06/09/20 23 Celiac disease 08/28/2020 05/10/2025 Overview (08/28/2020): partially decreasing vit D, vit A,b6,vit E. replace and cut gluten Assessment & Plan (12/11/2020 6:51 PM CDT): Improving. Vit D still low at 28 but significantly better than 13. Increase from weekly to twice weekly vit D. Recheck in 6 weeks before sleep study (new baseline to compare) Elevated ferritin (423) 07/24/2020 08/01/2024 Assessment & Plan (12/11/2020 6:53 PM CDT): Recheck in future after sleep study. Coming down-now 296. Differential for cause is mostly likely félix. Vs. Liver disease (advanced hepatitc steatosis) Assessment & Plan (08/28/2020 6:37 PM [employer]): Suspect from félix. Reassess after cpap and vit d replacment Elevated hemoglobin 07/24/2020 02/11/20 24 Assessment & Plan (12/11/2020 6:50 PM CDT): Came down a little from 16 to 15.5. will recheck after sleep study Assessment & Plan (08/28/2020 6:37 PM [employer]): Suspect from félix. Reassess after cpap Severe obesity (BMI 35.0-35. 9 with comorbidity) 07/24/2020 02/11/2024 Assessment & Plan (06/09/2023 7:17 PM [employer]): I recommend following 1200 calorie diet. As well as exercising 30-45 minutes most days of the week. See below Assessment & Plan (08/28/2020 6:39 PM [employer]): Slowly beginning to lose weight. Continue with cpap machine-may help more. Cont vit D (helping). Off soda Abnormal mammogram of right breast 06/27/2020 06/09/2023 Assessment & Plan (07/24/2020 5:55 PM [employer]): Normal diagnostic mamogram right breast Suspected sleep apnea 06/27/20202020 Assessment & Plan (07/24/2020 5:56 PM [employer]): Has appt coming up with sleep medicine. Malignant melanoma of right upper arm (CMS/HCC) s/p resection 05/201806/26/2020 02/11/20 24 Encounters Date Type Department Care Team Description 05/10/2025 7:00 AM [employer] Office Visit [facility] [address] [place] [phone] Bee Sims NP Physical exam, annual (Primary Dx); Moderate major depression (HCC); Attention deficit hyperactivity disorder (ADHD), predominantly inattentive type; DUNIA (generalized anxiety disorder); Hepatic steatosis; FÉLIX (obstructive sleep apnea); Hypertension, essential; Vitamin D deficiency(12); Class 1 obesity due to excess calories without serious comorbidity with body mass index (BMI) of 33.0 to 33.9 in adult; History of melanoma excision; Need for vaccination from Last 3 Months Immunizations Immunization Administration Dates Next Due Influenza, Quadrivalent, Spl it, Preservative Free, Intramuscular 05/20/2022,06/27/2020 Influenza, Trivalent, IM (MDV) 04/17/2021 Influenza, Trivalent, Preser vative Free, Intramuscular 05/10/2025 Influenza, Unspecified 04/06/2025(Deferr ed: Patient Refused),04/06/2024(Deferred: Patient decision),06/09/2023(Deferred: Patient Refused),04/06/2023(Deferred: Patient decision) Pfizer SARS-CoV-2 Monovalent Vaccination (12+ Yrs) PURPLE 09/14/2020,08/24/2020 Pneumococcal Conjugate Pcv20 05/10/2025 Tdap 01/12/2019 ZOSTER Recombinant 10/30/2020(Deferred: Patient Refused) Surgical History Surgery Date Site/Laterality Comments MELANOMA RESECTION HEMORROIDECTOMY Medical History Medical History Date Comments Malignant melanoma of right upper arm (HCC) 06/26/2020 Sleep apnea, obstructive Anxiety Vitamin D deficiency 2019 Celiac disease 08/28/2020 partially decrea sing vit D, vit A,b6,vit E. replace and cut gluten Family History Medical History Relation Name Comments No Known Problems Brother Autoimmune disease Father Liver disease Father Brain cancer Maternal Grandfather Chinedu Ariashaber Cancer Maternal Grandfather Chinedu Wildhaber Bone cancer Maternal Grandmother Kami Wildlexaber Cancer Maternal Grandmother Kami Guy Atrial fibrillation Mother Dementia Paternal Grandmother Relation Name Status Comments Brother Alive Father Maternal Grandfather Chinedu Guy Maternal Grandmother Kami Guy Mother Alive Paternal Grandfather Paternal Grandmother Alive Social History Tobacco Use Types Packs/Day Years Used Date Smoking Tobacco: Never Smokeless Tobacco: Never Tobacco Cessation:Counseling Given: Not Answered Alcohol Use Standard Drinks/Week Comments Yes 6 [...] on file Legal Sex Female 2:29 AM [employer] Gender Identity Female 06/17/2020 11:07 AM [employer] Sexual Orientation Straight 06/17/2020 11 :07 AM [employer] Last Filed Vital Signs Vital Sign Reading Time Taken Comments Blood Pressure 138/82 05/10/2025 6:56 AM [employer] Pulse 94 05/10/2025 6:56 AM [employer] Temperature 36.2 C (97.2 F) 05/10/2025 6:56 AM [employer] Respiratory Rate 16 05/10/2025 6:56 AM [employer] Oxygen Saturation 97% 05/10/2025 6:56 AM [employer] Inhaled Oxygen Concentration - - Weight 90.2 kg (198 lb 12.8 oz) 05/10/2025 6:56 AM [employer] Height 165.1 cm (5' 5) 05/10/2025 6:56 AM [employer] Body Mass Index 33.08 05/10/2025 6:56 AM [employer] Plan of Treatment Health Maintenance Due Date Last Done Comments Hepatitis C Screening 1969 Hepatitis B Screening 1987 Zoster Vaccine (1 of 2) 2019 Breast Cancer Screening-Mammogram 11/20/2022 11/20/2021, 07/24/2020, 07/24/2020 Covid-19 Vaccine ( - 2024-2 6 season) 2025 07/03/2021, 09/14/2020, 08/24/2020 Cervical Cancer Screening 04/16/2026 04/16/2021 Depression Screening 05/10/2026 05/10/2025, 05/10/2025, 10/06/2024, Additional history exists Regular Well Visit/Exam 18-64 05/10/2026, 02/11/2024, 03/18/2023, Additional history exists DTaP/Tdap/Td Vaccine (2 - Td or Tdap) 01/12/2029 01/12/2019 Colon Cancer Screening-Colonoscopy 05/24/20292018 Influenza Vaccine Completed 05/10/2025, , 04/17/2021, Additional history exists Pneumococcal vaccine <65 Completed 05/10/2025 Procedures Procedure Name Priority Date/Time Associated Diagnosis Comments MAMMOGRAPHY Routine 11/20/2021 HM PAP SMEAR WITH HPV Routine 04/16/2021 HM COLONOSCOPY Routine 05/24/2019 from Last 3 Months or Most Recently Relevant to Health Maintenance Results * HM MAMMOGRAPHY (11/20/2021) us Historical Provider MD HEALTH MAINTENANCE Final Result * PAP SMEAR WITH HPV (04/16/2021) us Historical Provider HEALTH MAINTENANCE Final Result * COLONOSCOPY (05/24/2019) Historical Provider HEALTH MAINTENANCE Final Result from Last 3 Months or Most Recently Relevant to Health Maintenance Insurance [facility] H[facility] Care Teams Cloth Handler Relationship Specialty Start Date End Date Justina Camp PA [address] [place] [address] PCP - General Family Medicine 02/11/24 Starr Jennings PA [address] [place] [address] 06/27/20 Cole Rush MD [address] [place] [address] Referring Physician Obstetrics and Gynecology 01/15/22 Maxwell Nuñez MD [address] [place] [address] Consulting Physician Endocrinology Diabetes & Metabolism 01/15/22 Cheri Ann NP [address] [facility] [address] [place] [address] Nurse Practitioner Gastroenterology 01/15/22
--- OUTSIDE RECORDS SUMMARY | 2025-05-10 16:52 | XMS_ITS | Encounter Summary ---
Author Organization [facility] Health Address [address] [place] [address] Care Team Providers Care Software Tools Engineer Name Role Phone Unavailable Primary Care Provider Unavailabl e Encounter Details Date Type Department Care Team (Late st Contact Info) Description 12/24/2021 Lab Requisition [facility] [address] [facility] [facility] [place] [address] Eduar Chambers MD [address] [place] [address] Social History Tobacco Use Types Packs/Day Years [...] Priority Date/Time Associated Diagnosis Comments DERMATOPATHOLOGY Routine 12/21/2021 12:0 0 AM CDT documented in this encounter Results * DERMATOPATHOLOGY (12/21/2021 12:00 AM CDT) Case Report Dermatopathology Report Case: [id number] Authorizing Provider: Eduar Chambers MD Collected: 12/21/2021 12:00 AM Ordering Location: [facility] Received: 12/24/2021 03:39 PM Pathologist: Maureen Beasley MD Specimens: A) - Skin, left lower abdomen B) - Skin, upper abdomen 2 4:40 PM CDT DERMATOPATHOLOGY LABORATORY Final Diagnosis Specimen A. SKIN, left lower abdomen: COMPOUND NEVUS WITH CONGENITAL FEATURES (D22.5) Specimen B. SKIN, upper abdomen: LENTIGINOUS MELANOCYTIC NEVUS, COMPOUND TYPE, IRRITATED AND INFLAMED (D22.5) (see microscopic description and comment) 2 4:40 PM CDT DERMATOPATHOLOGY LABORATORY at 1640 CDT Clinical History A: Nevus vs MM. Path # [id number]. B: Nevus vs MM. Path # [id number]. 2 4:40 PM CDT DERMATOPATHOLOGY LABORATORY Gross Description Specimen A: Received is one formalin filled container labeled with the patient's name and designated left lower abdomen. The specimen consists of a shave biopsy measuring [id number]. Jar 0. Specimen B: Received is one formalin filled container labeled with the patient's name and designated upper abdomen. The specimen consists of a shave biopsy measuring [id number]. Jar 0. 2 4:40 PM T DERMATOPATHOLOGY LABORATORY Microscopic Description Specimen A. SKIN, left lower abdomen: There are nests of melanocytes at the dermal-epidermal junction and within the dermis. Some melanocytes are splayed between collagen bundles and are localized around adnexal structures. Specimen B. SKIN, upper abdomen: This is a compound nevus. There is melanin pigment in the stratum corneum. There is a lentiginous proliferation of melanocytes between nevus nests of cells along the dermal epidermal junction. There is underlying fibroplasia of the papillary dermis. The intradermal component is bland in appearance and matures with depth. There is a lymphohistiocytic infiltrate within the dermis. (Compound Chong's Nevus) COMMENT: This case was also reviewed by Dr. Britni Nesbitt who agrees with the diagnosis. 2 4:40 PM CDT DERMATOPATHOLOGY LABORATORY Disclaimer An external and internal positive and negative controls are appropriate for the histochemical, immunohistochemical and immunofluorescence stain(s) in this case (if any), except where stated explicitly. The performance characteristics of the stain(s) cited in this report were developed and its performance characteristic determined by the Dermatopathology Laboratory at [facility], directed by Dr. Gallo Sweeney. These tests need not be, and therefore are not, approved by the [place] Food and Drug Administration. The tests are used for clinical purposes. Billing Codes Specimen Charges Stain Charges 70281 77702 1 1 2 4:40 PM CDT DERMATOPATHOLOGY LABORATORY Embedded Images 2 4:40 PM CDT DERMATOPATHOLOGY LABORATORY Pathology/Cytology TISSUE SPECIMEN FROM SKIN / Unknown 12/21/2021 12/24/2021 3:39 PM CDT Miscellaneous samples (specimen) TISSUE SPECIMEN FROM SKIN / Unknown 12/21/2021 12/24/2021 3:39 PM CDT us Eduar Chambers MD LAB - PATHOLOGY/CYTOLOGY ORDER MARIA ANTONIA Final Result DERMATOPATHOLOGY LABORATORY [facility] - Department of Dermatology [facility] [address] [place] [address], [address] [phone] documented in this encounter Visit Diagnoses Not on filedocumented in this encounter
== END 2025-05-10 16:06 | disposition home or self-care (01) ==
LOC: ANHFOHIMG 16:06
PROVIDERS: Visit Provider Obstetrics & Gynecology
DX: Z12.31 Encounter for screening mammogram for malignant neoplasm of breast (principal)
CPT/HCPCS: 77063; 77067